=== PATIENT | male | born 2000 | race Caucasian/White ===

== ENCOUNTER 2021-08-22 02:41 | Emergency (ER) | payer OTHER ==
[~2021-08-22] VITALS: Ht 188 cm; Wt 74.8 kg
--- NOTE | 2021-08-22 02:48 | NUR ---
PT CHIQUITA CHP TAKEN TO CHAIR.
[2021-08-22 02:53] VITALS: BP 137/74
--- NOTE | 2021-08-22 03:49 | NUR ---
PATIENT BIB [facility] POLICE DEPT. PATIENT EXAMINED BY DR. ESCOBEDO. PATIENT MEDICALLY CLEARED AND RELEASED IN CUSTODY IN STABLE CONDITION. ORIGINAL PRE-BOOK FORM GIVEN TO OFFICER JACK, #[id number]
== END 2021-08-22 03:49 ==
LOC: MED 02:41
DX: F10.10 Alcohol abuse, uncomplicated (principal); Z02.89 Encounter for other administrative examinations; V89.2XXA Person injured in unspecified motor-vehicle accident, traffic, initial encounter; Y93.89 Activity, other specified; Y92.89 Other specified places as the place of occurrence of the external cause; Y99.8 Other external cause status
CPT/HCPCS: 99283